=== PATIENT | female | born 1975 | race Caucasian/White ===

== ENCOUNTER 2017-11-27 22:07 | Emergency (ER) | payer BC ==
[~2017-11-27] VITALS: Ht 157.5 cm; Wt 68.2 kg
[2017-11-27] MEDS ORDERED: CLARITIN 1010 MG/TAB PO (22:20)
[2017-11-27] MEDS ORDERED: SYNTHROID0.125 MG PO (22:20)
[2017-11-27] MEDS ORDERED: FISH OIL CONCEN1 SG2 PO (22:20)
[2017-11-27 22:48] LABS: HEMATOCRIT 42.6 % (37.0-47.0); HEMOGLOBIN 14.2 g/dL (12.5-16.0); MEAN CELL VOLUME 93 fl (78-100); MEAN CORPUSCULAR HEMOGLOBIN 31 pg (27-31); MEAN CORPUSCULAR HGB CONC 33 g/dL (33-37); MEAN PLATELET VOLUME 9.8 fl (7.4-10.4); PLATELET COUNT 246 K/mm3 (130-400); RED BLOOD COUNT 4.56 M/mm3 (4.10-5.30); RED CELL DISTRIBUTION WIDTH 13.1 % (11.5-14.5); WHITE BLOOD COUNT 13.3 K/mm3 (4.8-10.8)
[2017-11-27 23:01] LABS: ALBUMIN 4.7 g/dL (3.5-5.0); BUN/CREATININE RATIO 21.7 (6.0-26.0); CALCIUM 8.8 mg/dL (8.4-10.2); POTASSIUM 3.6 mmol/L (3.6-5.0); TOTAL BILIRUBIN 0.2 mg/dL (0.2-1.3); TOTAL PROTEIN 8.5 g/dL (6.3-8.2)
[2017-11-27 23:09] LABS: BAND 1 % (0-10); LYMPHOCYTE 15 % (20-51); MONOCYTE 1 % (3-10); NEUTROPHILS 83 % (42-75)
[2017-11-27 23:54] LABS: URINE APPEARANCE HAZY; URINE BILIRUBIN NEGATIVE (NEGATIVE); URINE BLOOD NEGATIVE (NEGATIVE); URINE COLOR YELLOW; URINE GLUCOSE NEGATIVE (NEGATIVE); URINE KETONE 1+ (NEGATIVE); URINE LEUKOCYTE ESTERASE NEGATIVE (NEGATIVE); URINE NITRATE NEGATIVE (NEGATIVE); URINE PROTEIN(semi-quant) NEGATIVE (NEGATIVE); URINE UROBILINOGEN NORMAL (NORMAL)
[2017-11-27 23:55] LABS: URINE WBC 0-1 /hpf (0-3)
[2017-11-28 01:11] VITALS: BP 144/95
== END 2017-11-28 01:11 | disposition short-term general hospital (02) ==
LOC: ED 22:07
PROVIDERS: Nurse Practitioner
DX: R19.04 Left lower quadrant abdominal swelling, mass and lump (principal); R10.32 Left lower quadrant pain
CPT/HCPCS: J1170; J2270; J2405; J7030; Q9967